=== PATIENT | female | born 1965 | race Two or more races ===

== ENCOUNTER 2018-02-17 13:00 | Emergency (ER) | payer OTHER ==
[2018-02-17 13:17] VITALS: BP 142/68; PULSE 69; TEMP 98.1; BMI 33.2
[2018-02-17] MEDS ORDERED: IBUPROFEN 600 MG TABLET (FP) PO ONE (13:43)
[2018-02-17] MEDS ORDERED: IBUPROFEN 400 MG TABLET (FP) PO ONE (13:50)
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
== END 2018-02-17 14:07 | disposition home or self-care (01) ==
LOC: JERFT 13:00
DX: S60.212A Contusion of left wrist, initial encounter (principal); W52.XXXA Crushed, pushed or stepped on by crowd or human stampede, initial encounter; Y93.89 Activity, other specified; Y92.158 Other place in reform school as the place of occurrence of the external cause; Y99.0 Civilian activity done for income or pay
CPT/HCPCS: 73110-TC-LR-FY; 73130-TC-LR-FY; 99281-25

== ENCOUNTER 2022-12-01 11:23 | Emergency (ER) | payer OTHER ==
[2022-12-01 11:28] VITALS: BP 145/78; PULSE 70; RESP 19; TEMP 98.6; BMI 38.7
[2022-12-01] MEDS ORDERED: ACETAMINOPHEN 500 MG TABLET (FP) PO ONE (12:53)
[2022-12-01] MEDS ORDERED: KETOROLAC TROMETHAMINE 30 MG/1 ML VIAL IM ONE (12:53)
== END 2022-12-01 13:05 | disposition home or self-care (01) ==
LOC: JERFT 11:23
DX: M79.641 Pain in right hand (principal); R07.81 Pleurodynia; M25.562 Pain in left knee; W10.8XXA Fall (on) (from) other stairs and steps, initial encounter; Y93.01 Activity, walking, marching and hiking; Y99.0 Civilian activity done for income or pay
CPT/HCPCS: 71101-TC-LT-FY; 73130-TC-RT-FY; 73560-TC-LT-FY; 99284-25

== ENCOUNTER 2023-04-21 12:36 | Emergency (ER) | payer OTHER ==
[2023-04-21] MEDS ORDERED: ACETAMINOPHEN 1000 MG/100 ML BAG IVPB ONE (12:41)
[2023-04-21] MEDS ORDERED: ACETAMINOPHEN INJECTION 100 ML IVPB ONE (13:21)
[2023-04-21 13:27] LABS: HEMATOCRIT 42.2 % (32.4-45.2); HEMOGLOBIN 14.4 G/dL (10.7-15.3); MCH 33.8 pg (25.7-33.7); MEAN CELL VOLUME 99.4 fl (80-96); MEAN PLT VOLUME 8.3 fl (7.5-11.1); PLATELET COUNT 238.2 10^3/uL (134-434); RBC 4.25 10^6/uL (3.60-5.2); RDW 12.7 % (11.6-15.6); WHITE BLOOD COUNT 6.4 10^3/uL (4.0-10.8)
[2023-04-21 15:28] LABS: MACROCYTOSIS OCCASIONAL; PLATELET ESTIMATE ADEQUATE
[2023-04-21 15:31] LABS: ALBUMIN 4.3 g/dl (3.4-5.0); BILIRUBIN,TOTAL 0.4 mg/dl (0.2-1); CALCIUM 9.3 mg/dl (8.5-10.1); CREATININE 0.8 mg/dl (0.6-1.3); POTASSIUM 3.7 mmol/L (3.5-5.1); TOT PROT 7.7 g/dl (6.4-8.2)
[2023-04-21 16:07] VITALS: BP 151/75; PULSE 70; RESP 16; TEMP 99.3; BMI 37.0
[2023-04-21] MEDS ORDERED: KETOROLAC TROMETHAMINE 15 MG/ML VIAL IVPUSH ONE (16:15)
[2023-04-21] MEDS ORDERED: SODIUM CHLORIDE 0.9% 500 ML INFUS.BAG IV ONE (16:15)
[2023-04-21] MEDS ORDERED: KETOROLAC TROMETHAMINE 15 MG/ML VIAL ONE (16:27)
== END 2023-04-21 17:29 | disposition home or self-care (01) ==
LOC: FER 12:36
PROC: 3E033NZ Introduction of Analgesics, Hypnotics, Sedatives into Peripheral Vein, Percutaneous Approach (ICD-10-PCS; principal; 2023-04-21)
PROC: 3E033GC Introduction of Other Therapeutic Substance into Peripheral Vein, Percutaneous Approach (ICD-10-PCS; 2023-04-21)
DX: R10.32 Left lower quadrant pain (principal)
CPT/HCPCS: 36415; 74177-TC; 80053; 81003; 85027; 87086; 99285-25; Q9967

== ENCOUNTER 2023-05-07 04:17 | Day surgery (SDC) | payer OTHER ==
[2023-05-04 14:28] VITALS: BMI 35.1
[2023-05-07 09:27] VITALS: TEMP 97.7
[2023-05-07 09:36] VITALS: RESP 20
[2023-05-07 09:55] VITALS: BP 108/62; PULSE 52
== END 2023-05-07 10:18 | disposition home or self-care (01) ==
LOC: JASU-ENDO 04:17
PROVIDERS: ATTEND Internal Medicine Gastroenterology
PROC: 0DBC8ZX Excision of Ileocecal Valve, Via Natural or Artificial Opening Endoscopic, Diagnostic (ICD-10-PCS; 2023-05-07)
PROC: 0DB68ZX Excision of Stomach, Via Natural or Artificial Opening Endoscopic, Diagnostic (ICD-10-PCS; 2023-05-07)
PROC: 0DB78ZX Excision of Stomach, Pylorus, Via Natural or Artificial Opening Endoscopic, Diagnostic (ICD-10-PCS; 2023-05-07)
PROC: 0DBL8ZX Excision of Transverse Colon, Via Natural or Artificial Opening Endoscopic, Diagnostic (ICD-10-PCS; principal; 2023-05-07 09:00)
DX: Z12.11 Encounter for screening for malignant neoplasm of colon (principal); D12.3 Benign neoplasm of transverse colon; K63.5 Polyp of colon; K29.50 Unspecified chronic gastritis without bleeding; B96.81 Helicobacter pylori [H. pylori] as the cause of diseases classified elsewhere; K44.9 Diaphragmatic hernia without obstruction or gangrene; R10.12 Left upper quadrant pain
CPT/HCPCS: 88305-TC; 88342-TC